=== PATIENT | female | born 1995 | race Caucasian/White ===

== ENCOUNTER 2021-11-05 18:54 | Emergency (ER) | payer MEDICAID ==
[~2021-11-05] VITALS: Ht 167.6 cm; Wt 75.0 kg
[2021-11-05] MEDS ORDERED: ACETAMINOPHEN 325MG TABLET PO ONE (20:00)
[2021-11-05] MEDS ORDERED: AMOXICILLIN/POTASSIUM CLAVULANATE 875/125MG TAB PO ONE (20:00)
[2021-11-05] MEDS ORDERED: IBUP-2029 MT (20:14)
[2021-11-05] MEDS ORDERED: AMOX1TAB16 MT (20:14)
[2021-11-05 21:25] VITALS: BP 122/75
== END 2021-11-05 21:28 | disposition home or self-care (01) ==
LOC: ER 18:54
DX: S71.152A Open bite, left thigh, initial encounter (principal); W54.0XXA Bitten by dog, initial encounter; Y93.89 Activity, other specified; Y92.414 Local residential or business street as the place of occurrence of the external cause
CPT/HCPCS: 99283